=== PATIENT | male | born 1985 | race Hispanic/Latino ===

== ENCOUNTER 2020-02-14 10:48 | Inpatient (IN) | payer SELFPAY ==
[~2020-02-14] VITALS: Ht 188 cm; Wt 145.1 kg
[2020-02-14] MEDS ORDERED: ONDANSETRON HCL 4 MG/2 ML VIAL ONE (13:09)
[2020-02-14] MEDS ORDERED: KETOROLAC TROMETHAMINE 30MG/ML ONE (13:09)
[2020-02-14] MEDS ORDERED: MORPHINE SULFATE 4 MG/1ML SYG ONE (13:09)
[2020-02-14 13:17] LABS: BASOPHILS % (AUTO) 0.2 % (0.0-5.0); EOSINOPHILS % (AUTO) 0.3 % (0.0-8.0); HEMATOCRIT 40.1 % (42-54); LYMPHOCYTES % (AUTO) 8.9 % (21.0-51.0); MEAN CORPUSCULAR HEMOGLOBIN 30.8 pg (27.0-33.0); MEAN CORPUSCULAR HGB CONC 33.9 g/dL (32.0-36.0); MEAN CORPUSCULAR VOLUME 90.7 fL (79-99); MONOCYTES % (AUTO) 10.5 % (3.0-13.0); NEUTROPHILS % (AUTO) 79.7 % (40.0-77.0); PLATELET COUNT (AUTO) 245 K/uL (130-400); RED BLOOD CELL COUNT(AUTO) 4.42 MIL/uL (4.50-6.20); RED CELL DISTRIBUTION WIDTH 12.2 % (11.0-15.5); WHITE BLOOD COUNT (AUTO) 10.9 K/uL (4.8-10.8)
[2020-02-14 13:22] LABS: CREATININE 1.2 mg/dL (0.5-1.5); POTASSIUM 3.6 mmol/L (3.5-5.1)
[2020-02-14 13:27] LABS: ALBUMIN 3.5 g/dL (3.5-5.0); BILIRUBIN,TOTAL 0.5 mg/dL (0.2-1.0); TOTAL PROTEIN, SERUM 7.6 g/dL (6.0-8.3)
[2020-02-14] MEDS ORDERED: HYDROCORTISONE 25 MG SUPPOSITORY PR SCH (13:35)
[2020-02-14 13:43] LABS: APPEARANCE,URINE Clear (CLEAR); BILIRUBIN,URINE Negative (NEGATIVE); COLOR,URINE Yellow (YELLOW); GLUCOSE, URINE (UA) Negative (NEGATIVE); KETONES,URINE Negative (NEGATIVE); LEUKOCYTE ESTERASE ,URINE Negative (NEGATIVE); NITRATE,URINE Negative (NEGATIVE); OCCULT BLOOD,URINE Negative (NEGATIVE); PH,URINE 6.5 (5.0-8.0); PROTEIN,URINE Negative (NEGATIVE)
[2020-02-14] MEDS ORDERED: ZOSYN 3.375GM+NS 50ML 50 ML IV ONE (14:13)
[2020-02-14] MEDS ORDERED: ACETAMINOPHEN 325 MG TAB PO PRN (14:15)
[2020-02-14] MEDS ORDERED: ONDANSETRON HCL 4 MG/2 ML VIAL IVP PRN (14:15)
[2020-02-14] MEDS ORDERED: ALPRAZOLAM 1 MG TAB ONE (15:06)
[2020-02-14] MEDS ORDERED: IOHEXOL 350 MG/ML 100ML INFUS..BTL IV ONE (15:11)
[2020-02-14 15:52] LABS: BASOPHILS % (AUTO) 0.3 % (0.0-5.0); EOSINOPHILS % (AUTO) 0.3 % (0.0-8.0); HEMATOCRIT 37.8 % (42-54); LYMPHOCYTES % (AUTO) 13.6 % (21.0-51.0); MEAN CORPUSCULAR HEMOGLOBIN 30.6 pg (27.0-33.0); MEAN CORPUSCULAR HGB CONC 33.1 g/dL (32.0-36.0); MEAN CORPUSCULAR VOLUME 92.4 fL (79-99); MONOCYTES % (AUTO) 11.5 % (3.0-13.0); PLATELET COUNT (AUTO) 236 K/uL (130-400); RED BLOOD CELL COUNT(AUTO) 4.09 MIL/uL (4.50-6.20); RED CELL DISTRIBUTION WIDTH 12.3 % (11.0-15.5); WHITE BLOOD COUNT (AUTO) 11.1 K/uL (4.8-10.8)
[2020-02-14 16:11] LABS: CREATININE 1.1 mg/dL (0.5-1.5); POTASSIUM 3.7 mmol/L (3.5-5.1)
[2020-02-14 16:16] LABS: ALBUMIN 3.1 g/dL (3.5-5.0); BILIRUBIN,TOTAL 0.5 mg/dL (0.2-1.0); TOTAL PROTEIN, SERUM 6.9 g/dL (6.0-8.3)
[2020-02-14] MEDS ORDERED: ACETAMINOPHEN 325 MG TAB ONE (16:24)
[2020-02-14 18:10] LABS: AMPHET/METH SCREEN,URINE NEGATIVE (NEGATIVE); BARBITURATE SCREEN, URINE NEGATIVE (NEGATIVE); BENZODIAZEPINES SCREEN,URINE POSITIVE (NEGATIVE); CANNABINOID SCREEN,URINE POSITIVE (NEGATIVE); COCAINE SCREEN,URINE NEGATIVE (NEGATIVE); OPIATE SCREEN,URINE POSITIVE (NEGATIVE); PHENCYCLIDINE SCREEN,URINE NEGATIVE (NEGATIVE)
[2020-02-14] MEDS: ACETAMINOPHEN-CODEINE 300/30MG TAB PO PRN (18:41)
[2020-02-14 20:00] VITALS: BP 134/88
[2020-02-14] MEDS: ZOSYN 3.375GM+NS 50ML 50 ML IV SCH (20:44)
[2020-02-14] MEDS: MORPHINE SULFATE 2 MG/ML 1ML SYG IVP PRN (20:45)
[2020-02-15] VITALS (26 sets, daily range): BP systolic 113–168; BP diastolic 65–99
[2020-02-15] MEDS: ZOSYN 3.375GM+NS 50ML 50 ML IV SCH ×3 (04:17→20:44)
--- NOTE | 2020-02-15 08:00 | NUR ---
perirectal abscess Addendum: 02/15/20 at 2036 by LALITHA HERBERT RN RN Amended: Links added.
[2020-02-15] MEDS ORDERED: BUPIVACAINE/PF 0.5% 30ML VIAL ONE (08:16)
[2020-02-15] MEDS: MORPHINE SULFATE 2 MG/ML 1ML SYG IVP PRN ×2 (08:20→12:15)
[2020-02-15] MEDS ORDERED: KETOROLAC TROMETHAMINE 15MG/ML IV PRN (12:30)
--- NOTE | 2020-02-15 12:46 | NUR ---
DCP CM spoke to pt discussed dc plans. Pt is independent prior to admission, lives at home with spouse. Denies any equipments/services. Feels safe to go back home, still drives and works, spouse and family able to assist with transportation and needs as necessary. DC plan to home once stable. CM to continue to follow up. Addendum: 02/15/20 at 1247 by RON HICKEY LVN CM Amended: Links added.
[2020-02-15] MEDS ORDERED: LACTATED RINGERS 1000ML 1,000 ML IV ONE (14:34)
[2020-02-15] MEDS ORDERED: FENTANYL CITRATE PF 50 MCG/1 ML 2ML VIAL ONE (14:46)
[2020-02-15] MEDS ORDERED: MIDAZOLAM HCL 1 MG/ML 2ML VIAL ONE (14:46)
[2020-02-15] MEDS ORDERED: LIDOCAINE HCL MPF 1% 5ML VIAL ONE (14:46)
[2020-02-15] MEDS ORDERED: ROCURONIUM 10MG/1ML SYR 10 MG/ML ML ONE (14:46)
[2020-02-15] MEDS ORDERED: PROPOFOL 10 MG/ML 20ML VIAL IV ONE (14:46)
[2020-02-15] MEDS ORDERED: GLYCOPYRROLATE 1 MG/5 ML SYRINGE ONE (15:17)
[2020-02-15] MEDS ORDERED: NEOSTIGMINE 5MG/5ML SYR IV ONE (15:17)
[2020-02-15] MEDS ORDERED: SUGAMMADEX SODIUM 200 MG/2 ML VIAL IV ONE (15:23)
[2020-02-15] MEDS ORDERED: ONDANSETRON HCL 4 MG/2 ML VIAL ONE (15:40)
[2020-02-15] MEDS ORDERED: MEPERIDINE-PF 25 MG/ML SYG ONE (15:49)
--- NOTE | 2020-02-15 16:50 | NUR ---
Received Report PACU [id number] PATIENT BACK IN ROOM ALERT X3, DRESSING TO BUTTOCK INTACT WOUND CULTURES SENT FROM OR, VS FOLLOWS B/P 158/88 P 70, R 16, O2SATS 94 ON ROOM AIR , WILL CONTINUE TO MONITOR
[2020-02-15] MEDS ORDERED: KETOROLAC TROMETHAMINE 30MG/ML ONE (19:51)
--- NOTE | 2020-02-15 20:00 | NUR ---
PAIN PT CLAIMS OF PAINS ON THE RECTAL AREA. AM SHIFT NURSE LALITHA IN ROOM AND TORADOL IV ADMINISTERED FOR PAIN. WILL RE-ASSESS PT. Addendum: 02/15/20 at 2351 by FRANCIA GATES RN RN Amended: Links added.
--- NOTE | 2020-02-15 20:45 | NUR ---
MEDS SHIFT ASSESSMENT DONE, PLEASE REFER TO CHART. DUE MEDS ADMINISTERED, TOLERATED WELL. PT WAS ABLE TO HAVE A BM AND ABD PAD CHANGED. PT VERBALIZES THAT HE IS STILL IN PAIN ON HIS RECTAL AREA. PAGED JENNIFER HOGSHEAD MAT INSPECTOR EVENT PLANNER FOR HOSPITALIST, VIA ANSWERING SERVICE. HOGSHEAD MAT INSPECTOR CALLED BACK AND REFERRED PT'S COMPLAINTS OF PAINS. NEW ORDERS GIVEN, PLEASE REFER TO CPOE. WILL MEDICATE PT. Addendum: 02/16/20 at 0003 by FRANCIA GATES RN RN Amended: Links added.
[2020-02-15] MEDS ORDERED: MORPHINE SULFATE 2 MG/ML 1ML SYG IVP ONE (22:00)
--- NOTE | 2020-02-16 02:00 | NUR ---
ROUNDS PT RESTING WELL, FAIRLY ASLEEP. NO DISTRESS NOTED. KEPT RESTED AND UNDISTURBED FOR NOW. WILL CONTINUE TO MONITOR. CALL LIGHT WITHIN REACH.
[2020-02-16] MEDS ORDERED: KETOROLAC TROMETHAMINE 30MG/ML ONE (03:12)
[2020-02-16 03:16] VITALS: BP 132/78
--- NOTE | 2020-02-16 03:25 | NUR ---
PAIN PCP IN TO CHECK V/S, STABLE. PT COMPLAINTS OF PAIN TO RECTAL I AND D SITE. MEDICATED WITH TORADOL IV. KEPT COMFORTABLE IN BED. CALL LIGHT WITHIN REACH. WILL RE-ASSESS PT.
[2020-02-16] MEDS: ZOSYN 3.375GM+NS 50ML 50 ML IV SCH ×3 (04:45→20:56)
[2020-02-16] MEDS: ACETAMINOPHEN-CODEINE 300/30MG TAB PO PRN (04:45)
--- NOTE | 2020-02-16 04:45 | NUR ---
PAIN PT CLAIMS OF RECTAL PAINS. MEDICATED WITH TYLENOL #3 PO. OFFERED TO START HOT SITZ BATH BUT PT REFUSED IT AT THIS TIME. CLAIMS HE STILL WANTS TO SLEEP. FOR MORE CARE.
[2020-02-16 04:49] LABS: BASOPHILS % (AUTO) 0.2 % (0.0-5.0); EOSINOPHILS % (AUTO) 1.1 % (0.0-8.0); HEMATOCRIT 34.9 % (42-54); LYMPHOCYTES % (AUTO) 17.4 % (21.0-51.0); MEAN CORPUSCULAR HEMOGLOBIN 30.7 pg (27.0-33.0); MEAN CORPUSCULAR HGB CONC 34.1 g/dL (32.0-36.0); MEAN CORPUSCULAR VOLUME 90.2 fL (79-99); MONOCYTES % (AUTO) 13.2 % (3.0-13.0); NEUTROPHILS % (AUTO) 67.7 % (40.0-77.0); PLATELET COUNT (AUTO) 247 K/uL (130-400); RED BLOOD CELL COUNT(AUTO) 3.87 MIL/uL (4.50-6.20); RED CELL DISTRIBUTION WIDTH 12.1 % (11.0-15.5); WHITE BLOOD COUNT (AUTO) 9.5 K/uL (4.8-10.8)
[2020-02-16 04:59] LABS: CREATININE 1.3 mg/dL (0.5-1.5); POTASSIUM 3.4 mmol/L (3.5-5.1)
[2020-02-16 08:00] VITALS: BP 131/80
[2020-02-16] MEDS ORDERED: POTASSIUM CHLORIDE 20 MEQ ERTAB PO SCH (08:00)
--- NOTE | 2020-02-16 11:30 | NUR ---
TOLERATED SITZ BATH WELL. INSTRUCTED ON SITZ BATH WITH VERBAL INSTRUCTION AND DEMONSTRATION DONE ULTILIZING TEACH BACK METHOD, VERBALIZED UNDERSTANDING.
[2020-02-16 11:54] VITALS: BP 132/67
[2020-02-16 15:57] VITALS: BP 156/79
--- NOTE | 2020-02-16 16:15 | NUR ---
RETURN DEMONSTRATION OF SITZ BATH USE DONE BY PATIENT.
[2020-02-16 19:46] VITALS: BP 150/85
[2020-02-16] MEDS ORDERED: TEMAZEPAM 7.5 MG CAPSULE PO ONE ×2 (22:00→23:00)
[2020-02-16 23:56] VITALS: BP 147/92
[2020-02-17 04:22] VITALS: BP 143/87
[2020-02-17] MEDS: ZOSYN 3.375GM+NS 50ML 50 ML IV SCH ×2 (05:27→13:10)
[2020-02-17 07:13] LABS: BASOPHILS % (AUTO) 0.3 % (0.0-5.0); EOSINOPHILS % (AUTO) 3.6 % (0.0-8.0); HEMATOCRIT 37.5 % (42-54); LYMPHOCYTES % (AUTO) 18.6 % (21.0-51.0); MEAN CORPUSCULAR HEMOGLOBIN 30.5 pg (27.0-33.0); MEAN CORPUSCULAR HGB CONC 33.6 g/dL (32.0-36.0); MEAN CORPUSCULAR VOLUME 90.8 fL (79-99); MONOCYTES % (AUTO) 10.4 % (3.0-13.0); NEUTROPHILS % (AUTO) 66.5 % (40.0-77.0); PLATELET COUNT (AUTO) 300 K/uL (130-400); RED BLOOD CELL COUNT(AUTO) 4.13 MIL/uL (4.50-6.20); WHITE BLOOD COUNT (AUTO) 7.2 K/uL (4.8-10.8)
[2020-02-17 07:23] LABS: CREATININE 1.1 mg/dL (0.5-1.5); POTASSIUM 3.7 mmol/L (3.5-5.1)
[2020-02-17 08:00] VITALS: BP 139/81
[2020-02-17 11:00] VITALS: BP 142/79
--- NOTE | 2020-02-17 17:11 | NUR ---
PATIENT DISCHARGE PATIENT DISCHARGE, IV DISCONTINUED, CATHLON INTACT, BLEEDING CONTROLLED, PATIENT TOLERATED WITHOUT INCIDENT. DISCUSSED WITH PATIENT NEW ANTIBIOTICS AND FOLLOW UP APPOINTMENT WITH DR. WALDEN, PATIENT STATED HE HAD NO ADDITIONAL QUESTIONS.
== END 2020-02-17 18:00 | disposition home or self-care (01) | DRG 854 ==
LOC: EDH 10:48 → EDHIP 10:49 → 3CH 18:09
PROVIDERS: ADMIT Internal Medicine; ATTEND Internal Medicine
PROC: 0JBB0ZZ Excision of Perineum Subcutaneous Tissue and Fascia, Open Approach (ICD-10-PCS; principal; 2020-02-15 14:47)
DX: A41.9 Sepsis, unspecified organism (principal); K61.1 Rectal abscess; Z68.41 Body mass index [BMI] 40.0-44.9, adult; N17.9 Acute kidney failure, unspecified; K92.1 Melena; E66.01 Morbid (severe) obesity due to excess calories; N18.2 Chronic kidney disease, stage 2 (mild); K64.9 Unspecified hemorrhoids; F17.200 Nicotine dependence, unspecified, uncomplicated; F41.9 Anxiety disorder, unspecified
CPT/HCPCS: 36415; 72194; 80048; 80053; 80305; 81003; 82270; 82948; 83690; 83735; 84145; 85025; 87040; 87070; 87076; 87077; 87186; 87205; A6266; G0378; J1885; J2175; J2250; J2270; J2405; J2543; J2704; J2710; J3010; J3490; J7030; J7120; Q9967